=== PATIENT | female | born 1960 | race Caucasian/White ===

== ENCOUNTER 2018-11-08 20:42 | Emergency (ER) | payer OTHER ==
[~2018-11-08] VITALS: Ht 152.4 cm; Wt 94.2 kg
[2018-11-08] MEDS ORDERED: CRESTOR5 M1 (21:01)
[2018-11-08] MEDS ORDERED: LEVOTHYROXIN50 MCG PO (21:01)
[2018-11-08] MEDS ORDERED: EZETIMIBE (21:02)
[2018-11-08] MEDS ORDERED: DOXYCYCL HYC100 MG PO (21:32)
[2018-11-08 21:41] VITALS: BP 124/82
== END 2018-11-08 22:00 | disposition home or self-care (01) | DRG 605 ==
LOC: ED 20:42
DX: S51.851A Open bite of right forearm, initial encounter (principal); E03.9 Hypothyroidism, unspecified; W54.0XXA Bitten by dog, initial encounter; Y92.009 Unspecified place in unspecified non-institutional (private) residence as the place of occurrence of the external cause